=== PATIENT | female | born 1955 | race Caucasian/White ===

== ENCOUNTER 2024-08-02 06:28 | Day surgery (SDC) | payer MEDICARE, SELFPAY ==
--- NOTE | 2024-08-01 18:29 | PM.OP.1 ---
Operative Date/Time/Diagnoses Date of procedure: 08/02/24 Time of procedure: 08:45 Pre-op diagnosis: Bilateral dermatachalsis Post-op diagnosis: same Procedure & Clinicians Procedure: Date of service: 08/02/2024[] Preoperative diagnoses: 1. Bilateral upper lid dermatochalasis 2. Spastic dysphonia 3. Narrow angle glaucoma suspect Postoperative diagnoses: 1. Bilateral upper lid dermatochalasis Procedure: Bilateral upper blepharoplasty Surgeon: Tameka Casillas MD Complications: none Specimen: None Blood loss: Less than 3 mL Anesthesia: Local infiltration with monitored standby. Anesthesiologist: Vin Houston M.D. Indications: Bilateral upper lids obstructing superior vision. Preoperative external photographs taken and loss of vision to within 2 mm of marginal light reflex. Functional surgery. Procedure: In the preoperative holding area the amount skin and subcutaneous tissue to be removed was marked with indelible ink. The contours were carefully checked for symmetry and planned procedure discussed with the patient. The patient was taken to the operating room. IV sedation was given. Proparacaine drops were placed in both eyes for comfort. Local infiltration of anesthetic 2.5 cc into each upper lid, consisting of 1% xylocaine with epinephrine, normal saline and 1 cc hyluronidase was placed. This was then supplemented with full strength 2% xylocaine with epinephrine, 0.5% bupivacaine, and 1 cc hyalurondase. The face was prepped in an open manner. Attention was placed to the right upper lid. Using the previous simon a number 15. Bard-Arnol blade was used to incise a skin muscle flap. The flap was lifted and removed. Cautery was applied as needed. Contouring of the muscle belly was also performed. Exploration of the nasal and preoperneurotic fat pads were performed removal and contouring with hemostat and scissors as well as cautery were performed. The lid was then closed with running and interrupted 6 0 Vicryl sutures. Same procedure was repeated for the left upper lid. The Betadine was removed. Maxitrol ointment was placed to suture line. She returned to recovery room in stable condition. Instructions for postoperative cold packs were reviewed. Tameka Casillas MD. Same procedure as scheduled: Yes
--- NOTE | 2024-08-01 18:38 | PM.PREOP ---
Pre-operative Note COVID-19 COVID-19 status: Not tested Interval Note History & Physical reviewed/Exam performed by Physician: Yes Changes to H&P: No
[2024-08-02 07:01] VITALS: BP 140/77; PULSE 58; RESP 17; TEMP 36.6; O2SAT 100; BMI 19.5
[2024-08-02] MEDS: SODIUM CHLORIDE 0.9% 1,000 ML 84 ML IV (07:20)
[2024-08-02] MEDS: PROPARACAINE 0.5% OPHTH SOL 2 DROPS EYE-BOTH (08:37)
[2024-08-02] MEDS: LIDOCAINE 1% W/EPI 3 ML, SODIUM CHLORIDE 0.9% 2 ML, HYALURONIDASE 150 UNIT INJ (08:39)
[2024-08-02] MEDS: NEOMYCIN/POLY/DEX OPHTH OINT 1 APPLIC EYE-BOTH (08:40)
[2024-08-02] MEDS: LIDOCAINE 2% W/EPI INJ 20 ML VIAL INJ (08:45)
[2024-08-02] MEDS: BUPIVACAINE 0.5% (PF) 10 ML VIAL INJ (08:46)
[2024-08-02] MEDS: HYALURONIDASE 150 UNIT/ML VIAL (AMPHADASE) INJ (08:46)
[2024-08-02 09:20] VITALS: BP 131/69; PULSE 59; RESP 14; TEMP 36.1; O2SAT 100
[2024-08-02 09:25] VITALS: BP 125/69; PULSE 56; RESP 15; TEMP 36.2; O2SAT 100
[2024-08-02 09:32] VITALS: BP 142/75; PULSE 58; RESP 15; TEMP 36.3; O2SAT 100
[2024-08-02 09:43] VITALS: BP 129/71; PULSE 61; RESP 15; TEMP 36.2; O2SAT 100
== END 2024-08-02 09:51 | disposition home or self-care (01) ==
PROVIDERS: Referring Provider Ophthalmology; Visit Provider Ophthalmology
PROC: (CPT 15823; principal; 2024-08-02 07:45)
DX: H02.834 Dermatochalasis of left upper eyelid (principal); H02.831 Dermatochalasis of right upper eyelid
CPT/HCPCS: 15823; J2704; J3470